=== PATIENT | female | born 1970 | race Caucasian/White ===

== ENCOUNTER 2020-05-06 07:36 | Outpatient (CLI) | payer OTHER ==
--- NOTE | 2020-05-06 09:04 | MRI ---
MR of the right shoulder without contrast INDICATION: Right shoulder pain. Painful range of motion since February 17, 2020; history of fall TECHNIQUE: Sagittal T1, axial and coronal PD fat sat, sagittal and coronal T2 fat sat images were obt ained of the right shoulder. COMPARISON: None. FINDINGS: Motion artifact limits image detail. Rotator cuff: There is a low-grade partial thickness articular surface tear involving the mid to post erior supraspinatus that extends into the anterior conjoined tendon measuring 1.0 x 0.9 cm in its greatest mediolateral and AP dimensions respectively. The tear involves approximately one third of th e tendon thickness. Glenohumeral joint: Articular cartilage is intact. Glenoid labrum: There is a full-thickness tear involving the superior glenoid labrum that extends pos terior to the biceps anchor on images 12, 11 and 10 of series 7. The tear extends from approximately the 1:00 position through the 10:00 position. Biceps tendon and biceps anchor: Intact and located. Acromion clavicular joint: There is moderate AC joint osteoarthrosis. Subacromial subdeltoid space: No appreciable fluid. Axillary region: No lymphadenopathy. Surrounding shoulder musculature: Normal. No evidence of atrophy or strain. IMPRESSION: 1. Low-grade partial-thickness articular surface tear of the mid to posterior supraspinatus with some extension into the anterior conjoined tendon. 2. SLAP tear. 3. Moderate AC joint osteoarthrosis.
== END 2020-05-06 07:37 | disposition home or self-care (01) ==
LOC: BICMRI 07:36
PROVIDERS: ATTEND Family Medicine
DX: S20.211D Contusion of right front wall of thorax, subsequent encounter (principal); S43.431A Superior glenoid labrum lesion of right shoulder, initial encounter; M19.011 Primary osteoarthritis, right shoulder; M75.111 Incomplete rotator cuff tear or rupture of right shoulder, not specified as traumatic

== ENCOUNTER 2021-06-02 12:58 | Outpatient (CLI) | payer BC | END 2021-06-02 12:59 | disposition home or self-care (01) | LOC: BICMAMMO 12:58 | PROVIDERS: ATTEND Family Medicine | DX: Z12.31 Encounter for screening mammogram for malignant neoplasm of breast (principal); Z80.3 Family history of malignant neoplasm of breast | CPT/HCPCS: 77063; 77067 ==

== ENCOUNTER 2022-11-23 15:19 | Outpatient (CLI) | payer BC | END 2022-11-23 15:20 | disposition home or self-care (01) | LOC: BICMAMMO 15:19 | PROVIDERS: ATTEND Family Medicine | DX: Z12.31 Encounter for screening mammogram for malignant neoplasm of breast (principal) | CPT/HCPCS: 77063; 77067 ==

== ENCOUNTER 2025-01-03 14:30 | Inpatient (IN) | payer BC ==
[2025-01-03 15:23] VITALS: BMI 30.5
[2025-01-07] MEDS ORDERED: PROPOFOL 20 ML ONE (06:09)
[2025-01-07] MEDS ORDERED: Lidocaine 1% PF 5 ML VIAL ONE (06:11)
[2025-01-07] MEDS ORDERED: Rocuronium Bromide 10 MG/ML (10ML VIAL) ONE (06:11)
[2025-01-07] MEDS ORDERED: Thrombin 5000 UNITS/5 ML VIAL ONE (06:12)
[2025-01-07] MEDS ORDERED: CEFAZOLIN 2 GM VIAL ONE (06:36)
[2025-01-07] MEDS ORDERED: Mag-Al 1200 mg/1200 mg/30 ML UDCUP PO PRN (06:40)
[2025-01-07] MEDS ORDERED: HYDROcodone/Acetaminophen 7.5/325 mg Tablet PO PRN (06:40)
[2025-01-07] MEDS ORDERED: Prochlorperazine 10 MG/2 ML VIAL IM PRN (06:40)
[2025-01-07] MEDS ORDERED: diphenhydrAMINE 25 MG CAP PO PRN (06:40)
[2025-01-07] MEDS ORDERED: Ondansetron PF 4 MG/2 ML Vial IVP PRN (06:40)
[2025-01-07] MEDS ORDERED: Milk Of Magnesia 30 ML UDCUP PO PRN (06:40)
[2025-01-07 06:54] LABS: INR-International Normal Ratio 1.0; PTT 30.5 sec (22.9-36.1); Prothrombin Time 12.8 sec (12.0-14.7)
[2025-01-07] MEDS ORDERED: CEFAZOLIN 1 GM VIAL ONE (09:53)
[2025-01-07] MEDS ORDERED: Ondansetron PF 4 MG/2 ML Vial ONE (11:25)
[2025-01-07] MEDS ORDERED: Ketorolac Tromethamine 30 MG (1 mL) VIAL ONE (11:25)
[2025-01-07] MEDS ORDERED: SUGAMMADEX SODIUM 200 MG/2 ML VIAL ONE (11:31)
[2025-01-07] MEDS: Lisinopril 10 MG TAB PO SCH (13:28)
[2025-01-07] MEDS: Pantoprazole 40 MG DR.TAB PO SCH (13:28)
[2025-01-07] MEDS: HYDROcodone/Acetaminophen 10/325 mg Tablet PO PRN (20:35)
[2025-01-07] MEDS: Acetaminophen/Codeine 30-300mg Tablet PO PRN (21:49)
[2025-01-08 14:32] VITALS: BP 105/69; TEMP 98.3
== END 2025-01-08 17:00 | disposition home or self-care (01) | DRG 451 ==
LOC: SURG A 01-07 05:52
PROVIDERS: ADMIT Neurological Surgery; ATTEND Neurological Surgery
PROC: 0SG00AJ Fusion of Lumbar Vertebral Joint with Interbody Fusion Device, Posterior Approach, Anterior Column, Open Approach (ICD-10-PCS; principal; 2025-01-07)
PROC: 01NB0ZZ Release Lumbar Nerve, Open Approach (ICD-10-PCS; 2025-01-07)
PROC: 00NY0ZZ Release Lumbar Spinal Cord, Open Approach (ICD-10-PCS; 2025-01-07)
PROC: 0SB20ZZ Excision of Lumbar Vertebral Disc, Open Approach (ICD-10-PCS; 2025-01-07)
PROC: 3E033XZ Introduction of Vasopressor into Peripheral Vein, Percutaneous Approach (ICD-10-PCS; 2025-01-07)
PROC: 3E03329 Introduction of Other Anti-infective into Peripheral Vein, Percutaneous Approach (ICD-10-PCS; 2025-01-07)
DX: M48.062 Spinal stenosis, lumbar region with neurogenic claudication (principal); M43.16 Spondylolisthesis, lumbar region; M54.16 Radiculopathy, lumbar region; I10 Essential (primary) hypertension; Z98.891 History of uterine scar from previous surgery; Z98.890 Other specified postprocedural states; Z79.890 Hormone replacement therapy; Z79.899 Other long term (current) drug therapy
CPT/HCPCS: 85610; 85730; A4314; C1713; C1889; J0169; J0665; J0690; J1100; J1885; J2270; J2405; J2704; J3010; J3373; J7030

== ENCOUNTER 2025-01-03 14:38 | Outpatient (CLI) | payer BC ==
[2025-01-03 15:30] LABS: #Basophils 0.05 10x3/uL (0.0-0.2); #Eosinophils 0.13 10x3/uL (0.0-0.7); #Monocytes 0.45 10x3/uL (0.11-0.59); #Neutrophils 7.35 10x3/uL (1.40-6.50); %Basophils 0.5 % (0.0-1.0); %Eosinophils 1.2 % (0.0-10.0); %Lymphocytes 24.1 % (21.0-51.0); %Monocytes 4.3 % (0.0-10.0); %Neutrophils 69.5 % (42.0-75.0); Hematocrit 42.8 % (36.0-47.0); Hemoglobin 14.2 g/dL (12.0-16.0); Mean Corpuscular Hemoglobin 30.2 pg (27.0-31.0); Mean Corpuscular Volume 91.1 fL (78.0-98.0); Platelet Count 280 10x3/uL (130-400); Red Blood Cell (RBC) Count 4.70 mill/uL (4.20-5.40); White Blood Cell (WBC) Count 10.56 10x3/uL (4.8-10.8)
== END 2025-01-03 14:39 | disposition home or self-care (01) ==
LOC: LABBT 14:38
PROVIDERS: ATTEND Neurological Surgery
DX: Z01.812 Encounter for preprocedural laboratory examination (principal); M43.16 Spondylolisthesis, lumbar region
CPT/HCPCS: 85025